=== PATIENT | female | born 2000 | race Caucasian/White ===

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

== ENCOUNTER 2021-01-10 17:37 | Emergency (ER) | payer MEDICAID ==
[2021-01-10] MEDS ORDERED: Haldol 5 MG IV ONE (17:47)
[2021-01-10] MEDS ORDERED: Nicoderm CQ 21 MG TOP ONE (17:49)
[2021-01-10] MEDS ORDERED: Haldol 5 MG ONE (17:49)
[2021-01-10 17:58] LABS: Absolute Neutrophil Ct (ANC) 7.39 (1.4-6.9); BASOPHIL % 0.2 % (0.0-0.4); Basophil (Absolute #) 0.02 (0-0.4); Eosinophil % 0.9 % (0.00-5.0); Eosinophil (Absolute #) 0.11 (0-0.5); Hematocrit 39.1 % (35-47); Hemoglobin 13.2 gm/dl (12.0-16.0); Lymphocyte (Absolute #) 3.17 (1.0-4.6); Lymphocytes % 26.9 % (24.0-44.0); Mean Cell Volume 82.8 fl (78-100); Mean Corpuscular Hgb Concent. 33.8 g/dl (32-36); Monocytes % 9.3 % (0.0-12.0); Neutrophil % 62.7 % (36.0-66.0); Platelet Count 366 K/mm3 (150-450); Red Blood Count 4.72 M/mm3 (4.1-5.4); Red Cell Distribution Width 13.2 % (11.5-14.0); White Blood Count 11.8 K/mm3 (4.0-10.5)
[2021-01-10 18:10] LABS: ACETAMINOPHEN < 10 ug/ml (10-30); ALBUMIN 4.5 g/dL (3.5-5.0); ALKALINE PHOSPHATASE 97 U/L (38-126); ANION GAP 15.1 MEQ/L (5-15); BLOOD UREA NITROGEN 15 mg/dL (7-17); CHLORIDE 106 mmol/L (98-107); Calcium 9.2 mg/dL (8.4-10.2); Carbon Dioxide 21 mmol/L (22-30); Creatinine 1 0.71 mg/dL (0.52-1.04); EST GLOMERULAR FILTRATION RATE > 60.0 ML/MIN; ETHYL ALCOHOL < 10 mg/dL (0-10); Glucose 103 mg/dL (74-106); Potassium 3.3 mmol/L (3.5-5.1); SALICYLATE < 1.0 mg/dL (2-20); SGOT/AST 23 U/L (14-36); SGPT/ALT 17 U/L (0-35); SODIUM 139 mmol/L (137-145); Total Protein 7.8 g/dL (6.3-8.2)
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
[2021-01-10 19:47] LABS: Appearance SLIGHTLY CLOUDY (CLEAR); Bilirubin NEGATIVE (NEGATIVE); Blood SMALL Ery/ul (0-5); Epithelial Cells RARE /HPF (FEW); Glucose NEGATIVE (NEGATIVE); Ketones SMALL (NEGATIVE); Leukocyte Esterase NEGATIVE (NEGATIVE); Mucus MODERATE /HPF (NEGATIVE); Nitrite NEGATIVE (NEGATIVE); Protein,Urine Dip 30 (Negative); Urobilinogen NEGATIVE mg/dL (0-1)
[2021-01-10 19:58] LABS: Barbiturate,Urine NEGATIVE (NEGATIVE); Benzodiazepine,Urine NEGATIVE (NEGATIVE); Cocaine,Urine NEGATIVE (NEGATIVE); Methadone,Urine NEGATIVE (NEGATIVE); Opiate,Urine NEGATIVE (NEGATIVE); PCP,Urine NEGATIVE (NEGATIVE); THC,Urine POSITIVE (NEGATIVE)
[2021-01-10 20:18] LABS: Amphetamine,Urine POSITIVE (NEGATIVE)
[2021-01-10 21:06] VITALS: O2SAT 100
[2021-01-10 21:40] LABS: COVID AG -BINAX NOW RAPID TEST NEGATIVE (NEGATIVE)
[2021-01-10 23:12] VITALS: BP 105/62; PULSE 70
== END 2021-01-10 23:50 ==
LOC: ED 17:37
DX: R45.851 Suicidal ideations (principal); X78.8XXA Intentional self-harm by other sharp object, initial encounter; Y93.9 Activity, unspecified; Y92.9 Unspecified place or not applicable; F19.10 Other psychoactive substance abuse, uncomplicated; F29 Unspecified psychosis not due to a substance or known physiological condition; F41.9 Anxiety disorder, unspecified; R41.0 Disorientation, unspecified; F98.8 Other specified behavioral and emotional disorders with onset usually occurring in childhood and adolescence; F31.9 Bipolar disorder, unspecified; F43.10 Post-traumatic stress disorder, unspecified; F94.1 Reactive attachment disorder of childhood; E78.5 Hyperlipidemia, unspecified
CPT/HCPCS: 36000; 36415; 80053; 80307; 81001; 81025; 85025; 87086; 96374; 99000; 99285; J1630; A9270-GY; G0480

== ENCOUNTER 2021-03-18 20:00 | Observation (INO) | payer MEDICAID ==
[2021-03-18] MEDS ORDERED: Ativan 2 MG/1 ML VIAL IV ONE (20:39)
[2021-03-18] MEDS ORDERED: Sodium Chloride 0.9% 1000 ML 1,000 ML IV STA ×2 (20:39→23:38)
[2021-03-18 20:53] LABS: Hematocrit 42.1 % (35-47); Hemoglobin 14.2 gm/dl (12.0-16.0); Mean Cell Volume 82.4 fl (78-100); Mean Corpuscular Hemoglobin 27.8 pg (26-32); Mean Corpuscular Hgb Concent. 33.7 g/dl (32-36); Mean Platelet Volume 9.3 fl (7.5-11.0); Platelet Count 391 K/mm3 (150-450); Red Blood Count 5.11 M/mm3 (4.1-5.4); Red Cell Distribution Width 13.3 % (11.5-14.0); White Blood Count 10.3 K/mm3 (4.0-10.5)
[2021-03-18 20:57] LABS: ACETAMINOPHEN < 10 ug/ml (10-30); ALBUMIN 4.5 g/dL (3.5-5.0); ALKALINE PHOSPHATASE 95 U/L (38-126); ANION GAP 14.8 MEQ/L (5-15); BLOOD UREA NITROGEN 10 mg/dL (7-17); CHLORIDE 101 mmol/L (98-107); Calcium 9.2 mg/dL (8.4-10.2); Carbon Dioxide 26 mmol/L (22-30); Creatinine 1 0.63 mg/dL (0.52-1.04); EST GLOMERULAR FILTRATION RATE > 60.0 ML/MIN; ETHYL ALCOHOL < 10 mg/dL (0-10); Glucose 97 mg/dL (74-106); Potassium 3.1 mmol/L (3.5-5.1); SALICYLATE < 1.0 mg/dL (2-20); SGOT/AST 34 U/L (14-36); SGPT/ALT 21 U/L (0-35); SODIUM 139 mmol/L (137-145); Total Protein 7.6 g/dL (6.3-8.2)
[2021-03-18] MEDS ORDERED: Sodium Chloride 0.9% 1000 ML 1,000 ML ONE ×2 (20:57→23:40)
[2021-03-18] MEDS ORDERED: Ativan 2 MG/1 ML VIAL ONE (20:57)
[2021-03-18 21:33] LABS: ATYPICAL LYMPHS 2 %; Eosinophil 1 % (0.00-3.0); Lymphocytes 37 % (24-44); Monocyte 3 % (0.0-12.0); Neutrophils 57 % (36.0-66.0); Platelet Estimate NORMAL (NORMAL); Total Cells Counted 100
[2021-03-18] MEDS ORDERED: K-LYTE 25 MEQ PO ONE (22:46)
[2021-03-18 22:51] LABS: Appearance SLIGHTLY CLOUDY (CLEAR); Bilirubin NEGATIVE (NEGATIVE); Blood NEGATIVE Ery/ul (0-5); Epithelial Cells RARE /HPF (FEW); Glucose NEGATIVE (NEGATIVE); Ketones TRACE (NEGATIVE); Leukocyte Esterase NEGATIVE (NEGATIVE); Mucus SLIGHT /HPF (NEGATIVE); Nitrite NEGATIVE (NEGATIVE); Protein,Urine Dip 30 (Negative); RBC 0-2 /HPF (0-2); Specific Gravity 1.028 (1.005-1.025); Urobilinogen 4 mg/dL (0-1)
--- NOTE | 2021-03-18 22:52 | ERPHSYRPT ---
- History of Present Illness Time Seen by Provider: 03/18/21 20:12 Source: patient, EMS Exam Limitations: clinical condition Patient Subjective Stated Complaint: pt states she is self medicating with adderall dt being out of klonipin she states she used adderall and "weed" today Triage Nursing Assessment: to er c/o drug use related pyschosis pt arrives p/w/d resp easy a@ox3. pt is cooperative at this time. pt states she is out of anxiety medication so has self medicated today with 60mg adderall Physician History: 21 years old female with history of anxiety, ADHD/ADD is brought in the ER by EMS with psychotic symptoms. Patient reports she was out of her Klonopin and tried to help medicate her with Adderall she had and took 60 mg earlier. Patient is agitated but denies any suicidal or homicidal ideations. Denies any hallucinations or delusions. Patient currently doing my interview is concerned about eating as she is hungry. History is limited secondary to her condition. Timing/Duration: day(s), constant, gradual onset, worse Severity of Symptoms-Max: moderate Severity of Symptoms-Current: moderate Associated Symptoms: agitated, anxiety, frustrated, impaired concentration, ingestion Allergies/Adverse Reactions: sulfamethoxazole [From Bactrim] Allergy (Verified 12/13/17 11:06) Hives trimethoprim [From Bactrim] Allergy (Verified 12/13/17 11:06) Hives Hx Tetanus, Diphtheria Vaccination/Date Given: Yes Hx Influenza Vaccination/Date Given: No Hx Pneumococcal Vaccination/Date Given: No Travel Risk - International Travel Have you traveled outside of the country in past 3 weeks: No - Coronavirus Screening Are you exhibiting any of the following symptoms?: No Close contact with a COVID-19 positive Pt in past 14-21 Days: No - Vaccine Status Have you recieved a Covid-19 vaccination: No - Past Medical History Pertinent Past Medical History: Yes Neurological History: No Pertinent History ENT History: No Pertinent History Cardiac History: No Pertinent History Respiratory History: No Pertinent History Endocrine Medical History: No Pertinent History Musculoskeletal History: Other GI Medical History: No Pertinent History History: No Pertinent History Psycho-Social History: Anxiety, Attention Deficit Disorder, Depression, Other Female Reproductive Disorders: No Pertinent History Other Medical History: adhd, BIPOLAR, PTSD, REACTIVE ATTACHMENT DISORDER. hyperlipidemia - Past Surgical History Past Surgical History: No Neuro Surgical History: No Pertinent History Cardiac: No Pertinent History Respiratory: No Pertinent History Gastrointestinal: No Pertinent History Genitourinary: No Pertinent History Musculoskeletal: No Pertinent History Female Surgical History: No Pertinent History - Social History Smoking Status: Current every day smoker How long have you smoked: 6 yrs Exposure to second hand smoke: No Drug Use: marijuana, other Patient Lives Alone: No - Female History Hx Now: No - Review of Systems Constitutional: No Symptoms Eyes: No Symptoms Ears, Nose, & Throat: No Symptoms Respiratory: No Symptoms Cardiac: No Symptoms Abdominal/Gastrointestinal: No Symptoms Genitourinary Symptoms: No Symptoms Musculoskeletal: No Symptoms Skin: No Symptoms Neurological: No Symptoms Psychological: Drug Abuse, Anxiety, Emotional Lability, Mood Changes, No Suicidal Ideations, No Homicidal Ideations Endocrine: No Symptoms Hematologic/Lymphatic: No Symptoms - Nursing Vital Signs Nursing Vital Signs: Initial Vital Signs Temperature 98.3 F 03/18/21 20:01 Pulse Rate 110 H 03/18/21 20:01 Blood Pressure 149/90 03/18/21 20:01 O2 Sat by Pulse Oximetry 100 03/18/21 20:01 Pain Scale Pain Intensity 0 - Physical Exam General Appearance: no apparent distress, alert, anxiety Eyes, Ears, Nose, Throat Exam: normal ENT inspection, TMs normal, pharynx normal Neck Exam: normal inspection, non-tender, supple, full range of motion, No meningismus Respiratory Exam: normal breath sounds, lungs clear Cardiovascular Exam: regular rate/rhythm, normal heart sounds Gastrointestinal/Abdominal Exam: soft, normal bowel sounds, No tenderness Extremities Exam: normal inspection, normal range of motion Neurological Exam: alert, 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, oriented x 3, agitated, No normal mood/affect Appearance: appropriate appearance, appropriate insight Behavior/Eye Contact/Speech: alert & cooperative, avoids eye contact, increased rate of speech Thoughts/Hallucinations: no apparent hallucination, flight of ideas Skin Exam: normal color SpO2 Interpretation: normal SpO2: 100 O2 Delivery: Room Air Ordered Tests: Active Orders 24 hr Category Date Time Status Heel Seat Flap Stapler STAT Care 03/18/21 20:40 Active EKG-ER Only STAT Care 03/18/21 20:39 Active IV Insertion STAT Care 03/18/21 20:39 Active ACETAMINOPHEN Stat Lab 03/18/21 20:49 Completed CBC W DIFF Stat Lab 03/18/21 20:49 Completed CMP Stat Lab 03/18/21 20:49 Completed ETHYL ALCOHOL Stat Lab 03/18/21 20:49 Completed HCG,QUALITATIVE URINE Stat Lab 03/18/21 21:32 Completed Manual Differential NC Stat Lab 03/18/21 20:49 Completed SALICYLATE Stat Lab 03/18/21 20:49 Completed UA W/RFX UR CULTURE Stat Lab 03/18/21 21:32 Completed Urine Triage Profile Stat Lab 03/18/21 21:32 Completed Medication Summary Generic Name Dose Route Start Last Admin Trade Name Freq PRN Reason Stop Dose Admin Potassium Chloride 20 meq in 100 mls @ 50 mls/hr 03/18/21 23:02 03/18/21 23:05 Potassium Chloride 20 Meq In Water 100ml IV 03/19/21 01:01 50 mls/hr STAT ONE Administration Discontinued Medications Generic Name Dose Route Start Last Admin Trade Name Freq PRN Reason Stop Dose Admin Sodium Chloride 1,000 mls @ 999 mls/hr 03/18/21 20:39 03/18/21 22:36 Sodium Chloride 0.9% 1000 Ml IV 03/18/21 21:39 Infused .Q1H1M STA Infusion Sodium Chloride Confirm 03/18/21 20:57 Sodium Chloride 0.9% 1000 Ml Administered 03/18/21 20:58 Dose 1,000 mls @ ud .ROUTE .STK-MED ONE Potassium Chloride Confirm 03/18/21 23:03 Potassium Chloride 20 Meq In Water 100ml Administered 03/18/21 23:04 Dose 100 mls @ ud IV .STK-MED ONE Sodium Chloride 1,000 mls @ 999 mls/hr 03/18/21 23:38 03/19/21 00:49 Sodium Chloride 0.9% 1000 Ml IV 03/19/21 00:38 Infused .Q1H1M STA Infusion Sodium Chloride Confirm 03/18/21 23:40 Sodium Chloride 0.9% 1000 Ml Administered 03/18/21 23:41 Dose 1,000 mls @ ud .ROUTE .STK-MED ONE Sodium Chloride Confirm 03/19/21 00:29 Sodium Chloride 0.9% 1000 Ml Administered 03/19/21 00:30 Dose 1,000 mls @ ud .ROUTE .STK-MED ONE Lorazepam 1 mg 03/18/21 20:39 03/18/21 21:01 Ativan 2 Mg/1 Ml Vial IV 03/18/21 20:40 1 mg STAT ONE Administration Lorazepam Confirm 03/18/21 20:57 Ativan 2 Mg/1 Ml Vial Administered 03/18/21 20:58 Dose 2 mg .ROUTE .STK-MED ONE Potassium Bicarbonate 50 meq 03/18/21 22:46 K-Lyte 25 Meq PO 03/18/21 22:47 STAT ONE Lab/Rad Data: Laboratory Result Diagrams 03/18/21 20:49 03/18/21 20:49 Laboratory Results 03/18/21 03/18/21 03/18/21 Range/Units 21:32 21:32 21:32 WBC (4.0-10.5) K/mm3 RBC (4.1-5.4) M/mm3 Hgb (12.0-16.0) gm/dl Hct (35-47) % MCV (78-100) fl MCH (26-32) pg MCHC (32-36) g/dl RDW (11.5-14.0) % Plt Count (150-450) K/mm3 MPV (7.5-11.0) fl Segmented Neutrophils (36.0-66.0) % Lymphocytes (Manual) (24-44) % Monocytes (Manual) (0.0-12.0) % Eosinophils (Manual) (0.00-3.0) % Atypical Lymphocytes % Platelet Estimate (NORMAL) RBC Morphology Sodium (137-145) mmol/L Potassium (3.5-5.1) mmol/L Chloride (98-107) mmol/L Carbon Dioxide (22-30) mmol/L Anion Gap (5-15) MEQ/L BUN (7-17) mg/dL Creatinine (0.52-1.04) mg/dL Estimated GFR ML/MIN Glucose (74-106) mg/dL Calcium (8.4-10.2) mg/dL Total Bilirubin (0.2-1.3) mg/dL AST (14-36) U/L ALT (0-35) U/L Alkaline Phosphatase (38-126) U/L Serum Total Protein (6.3-8.2) g/dL Albumin (3.5-5.0) g/dL Urine Color MANNY (YELLOW) Urine Appearance SLIGHTLY CLOUDY (CLEAR) Urine pH 6.0 (5-6) Ur Specific [place] 1.028 (1.005-1.025) Urine Protein 30 (Negative) Urine Ketones TRACE (NEGATIVE) Urine Blood NEGATIVE (0-5) Diony/ul Urine Nitrite NEGATIVE (NEGATIVE) Urine Bilirubin NEGATIVE (NEGATIVE) Urine Urobilinogen 4 (0-1) mg/dL Ur Leukocyte Esterase NEGATIVE (NEGATIVE) Urine WBC (Auto) 3-5 (0-5) /HPF Urine RBC (Auto) 0-2 (0-2) /HPF U Epithel Cells (Auto) RARE (FEW) /HPF Urine Bacteria (Auto) NONE (NEGATIVE) /HPF Urine Mucus (Auto) SLIGHT (NEGATIVE) /HPF Urine Culture Reflexed NO (NO) Urine Glucose NEGATIVE (NEGATIVE) mg/dL Urine HCG, Qual NEGATIVE (Negative) Salicylates (2-20) mg/dL Urine Opiates Level NEGATIVE (NEGATIVE) Ur Methadone NEGATIVE (NEGATIVE) Acetaminophen (10-30) ug/ml Urine Barbiturates NEGATIVE (NEGATIVE) Ur Phencyclidine (PCP) NEGATIVE (NEGATIVE) Urine Amphetamine POSITIVE (NEGATIVE) U Benzodiazepine Level NEGATIVE (NEGATIVE) Urine Cocaine NEGATIVE (NEGATIVE) Urine Marijuana (THC) POSITIVE (NEGATIVE) Ethyl Alcohol (0-10) mg/dL 03/18/21 03/18/21 Range/Units 20:49 20:49 WBC 10.3 (4.0-10.5) K/mm3 RBC 5.11 (4.1-5.4) M/mm3 Hgb 14.2 (12.0-16.0) gm/dl Hct 42.1 (35-47) % MCV 82.4 (78-100) fl MCH 27.8 (26-32) pg MCHC 33.7 (32-36) g/dl RDW 13.3 (11.5-14.0) % Plt Count 391 (150-450) K/mm3 MPV 9.3 (7.5-11.0) fl Segmented Neutrophils 57 (36.0-66.0) % Lymphocytes (Manual) 37 (24-44) % Monocytes (Manual) 3 (0.0-12.0) % Eosinophils (Manual) 1 (0.00-3.0) % Atypical Lymphocytes 2 % Platelet Estimate NORMAL (NORMAL) RBC Morphology NORMAL Sodium 139 (137-145) mmol/L Potassium 3.1 L (3.5-5.1) mmol/L Chloride 101 (98-107) mmol/L Carbon Dioxide 26 (22-30) mmol/L Anion Gap 14.8 (5-15) MEQ/L BUN 10 (7-17) mg/dL Creatinine 0.63 (0.52-1.04) mg/dL Estimated GFR > 60.0 ML/MIN Glucose 97 (74-106) mg/dL Calcium 9.2 (8.4-10.2) mg/dL Total Bilirubin 0.40 (0.2-1.3) mg/dL AST 34 (14-36) U/L ALT 21 (0-35) U/L Alkaline Phosphatase 95 (38-126) U/L Serum Total Protein 7.6 (6.3-8.2) g/dL Albumin 4.5 (3.5-5.0) g/dL Urine Color (YELLOW) Urine Appearance (CLEAR) Urine pH (5-6) Ur Specific [place] (1.005-1.025) Urine Protein (Negative) Urine Ketones (NEGATIVE) Urine Blood (0-5) Diony/ul Urine Nitrite (NEGATIVE) Urine Bilirubin (NEGATIVE) Urine Urobilinogen (0-1) mg/dL Ur Leukocyte Esterase (NEGATIVE) Urine WBC (Auto) (0-5) /HPF Urine RBC (Auto) (0-2) /HPF U Epithel Cells (Auto) (FEW) /HPF Urine Bacteria (Auto) (NEGATIVE) /HPF Urine Mucus (Auto) (NEGATIVE) /HPF Urine Culture Reflexed (NO) Urine Glucose (NEGATIVE) mg/dL Urine HCG, Qual (Negative) Salicylates < 1.0 L (2-20) mg/dL Urine Opiates Level (NEGATIVE) Ur Methadone (NEGATIVE) Acetaminophen < 10 L (10-30) ug/ml Urine Barbiturates (NEGATIVE) Ur Phencyclidine (PCP) (NEGATIVE) Urine Amphetamine (NEGATIVE) U Benzodiazepine Level (NEGATIVE) Urine Cocaine (NEGATIVE) Urine Marijuana (THC) (NEGATIVE) Ethyl Alcohol < 10 (0-10) mg/dL - Progress Progress: improved Progress Note: 03/19/21 00:57 21 years old is evaluated for agitation and not acting her baseline after ingestion of Adderall. Patient is finally calm down. EKG showed sinus rhythm with no acute ST elevations. Urine drug screen is positive for THC and amphetamine. Patient does admit smoking weed. She is given fluid bolus and her tachycardia is improved. She had mild hypokalemia and given replacement. Poison control is called, recommended 10-hour observation and supportive care. Discussed with Dr. Crook and patient is being admitted for observation and once medically cleared, behavioral health would be consulted. Discussed with : Cielo Will see patient in: hospital (observation) Counseled pt/family regarding: lab results, diagnosis - Departure Departure Disposition: Observation Clinical Impression: Substance abuse Psychosis Qualifiers: Psychosis type: unspecified psychosis type Qualified Code(s): F29 - Unspecified psychosis not due to a substance or known physiological condition Drug overdose Qualifiers: Encounter type: initial encounter Injury intent: undetermined intent Qualified Code(s): T50.904A - Poisoning by unspecified drugs, medicaments and biological substances, undetermined, initial encounter Condition: Stable Critical Care Time: No Referrals: NERI MAURO [Primary Care Provider] -
[2021-03-18 22:57] LABS: Barbiturate,Urine NEGATIVE (NEGATIVE); Benzodiazepine,Urine NEGATIVE (NEGATIVE); Cocaine,Urine NEGATIVE (NEGATIVE); Methadone,Urine NEGATIVE (NEGATIVE); Opiate,Urine NEGATIVE (NEGATIVE); PCP,Urine NEGATIVE (NEGATIVE); THC,Urine POSITIVE (NEGATIVE)
[2021-03-18] MEDS ORDERED: POTASSIUM CHLORIDE 20 mEq IN WATER 100ML 20 MEQ/100 ML BAG IV ONE (23:02)
[2021-03-18] MEDS ORDERED: POTASSIUM CHLORIDE 20 mEq IN WATER 100ML 100 ML IV ONE (23:03)
[2021-03-18 23:20] LABS: Amphetamine,Urine POSITIVE (NEGATIVE)
[2021-03-19] MEDS ORDERED: Sodium Chloride 0.9% 1000 ML 1,000 ML ONE (00:29)
[2021-03-19] MEDS ORDERED: TORAdol 30 mg Injection IV PRN (03:20)
[2021-03-19] MEDS ORDERED: Sodium Chloride 0.9% W/ 20 mEq KCl/LITER 1,000 ML IV SCH (03:20)
[2021-03-19] MEDS ORDERED: TYLENOL 325 MG PO PRN (03:20)
[2021-03-19] MEDS ORDERED: DUONEB 0.5-3 MG/3 ml Neb IH PRN (03:20)
[2021-03-19 04:20] VITALS: BP 110/72; PULSE 69; O2SAT 100
[2021-03-19] MEDS ORDERED: PROTONIX 40 MG IV IV SCH (10:00)
--- NOTE | 2021-03-21 12:59 | SSS ---
DISCHARGE DIAGNOSES: HOSPITAL COURSE: The patient is a 21 year-old white female who presented to the emergency room with complaints of having run out of her Klonopin so she decided to take amphetamine instead. She got quite anxious and nervous. According to the emergency room and EMS the patient was having some psychotic syndrome although they were not more specific on this. The patient was felt the need to stay in the hospital for observation and a psychologic evaluation by [facility]. By the morning however the patient decided that she would not stay and left AMA prior to the time that I could see her in the airset caster hours.
== END 2021-03-19 04:30 | disposition left against medical advice (07) ==
LOC: ED 20:00 → MED SURG 03-19 03:13
PROVIDERS: ADMIT Family Medicine; ATTEND Family Medicine
DX: F15.159 Other stimulant abuse with stimulant-induced psychotic disorder, unspecified (principal); T43.621A Poisoning by amphetamines, accidental (unintentional), initial encounter; F41.9 Anxiety disorder, unspecified
CPT/HCPCS: 36000; 36415; 80053; 80307; 81001; 84703; 85025; 93005; 93041; 96360; 96374; 96375; 96376; 99285; G0378; U0003; J2060; J3480; G0480

== ENCOUNTER 2021-04-23 13:47 | Emergency (ER) | payer MEDICAID ==
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
[2021-04-23 14:47] LABS: Absolute Neutrophil Ct (ANC) 5.96 (1.4-6.9); BASOPHIL % 0.2 % (0.0-0.4); Basophil (Absolute #) 0.02 (0-0.4); Eosinophil % 1.4 % (0.00-5.0); Eosinophil (Absolute #) 0.13 (0-0.5); Hemoglobin 14.1 gm/dl (12.0-16.0); Lymphocytes % 29.4 % (24.0-44.0); Mean Cell Volume 83.5 fl (78-100); Mean Corpuscular Hemoglobin 27.4 pg (26-32); Mean Corpuscular Hgb Concent. 32.8 g/dl (32-36); Mean Platelet Volume 9.4 fl (7.5-11.0); Monocytes % 6.3 % (0.0-12.0); Neutrophil % 62.7 % (36.0-66.0); Platelet Count 356 K/mm3 (150-450); Red Blood Count 5.15 M/mm3 (4.1-5.4); Red Cell Distribution Width 14.3 % (11.5-14.0); White Blood Count 9.5 K/mm3 (4.0-10.5)
[2021-04-23 14:55] LABS: ACETAMINOPHEN < 10 ug/ml (10-30); ALBUMIN 4.5 g/dL (3.5-5.0); ALKALINE PHOSPHATASE 79 U/L (38-126); ANION GAP 14.1 MEQ/L (5-15); BLOOD UREA NITROGEN 10 mg/dL (7-17); CHLORIDE 105 mmol/L (98-107); Calcium 9.5 mg/dL (8.4-10.2); Carbon Dioxide 25 mmol/L (22-30); Creatinine 1 0.54 mg/dL (0.52-1.04); EST GLOMERULAR FILTRATION RATE > 60.0 ML/MIN; ETHYL ALCOHOL < 10 mg/dL (0-10); Glucose 99 mg/dL (74-106); Potassium 3.7 mmol/L (3.5-5.1); SALICYLATE < 1.0 mg/dL (2-20); SGOT/AST 30 U/L (14-36); SGPT/ALT 20 U/L (0-35); SODIUM 140 mmol/L (137-145); Total Protein 7.5 g/dL (6.3-8.2)
[2021-04-23 16:11] LABS: Appearance CLOUDY (CLEAR); Bacteria FEW /HPF (NEGATIVE); Bilirubin NEGATIVE (NEGATIVE); Blood NEGATIVE Ery/ul (0-5); Epithelial Cells RARE /HPF (FEW); Glucose NEGATIVE (NEGATIVE); Ketones NEGATIVE (NEGATIVE); Leukocyte Esterase SMALL (NEGATIVE); Mucus SLIGHT /HPF (NEGATIVE); Nitrite NEGATIVE (NEGATIVE); Protein,Urine Dip NEGATIVE (Negative); Specific Gravity 1.023 (1.005-1.025); Urobilinogen 4 mg/dL (0-1)
[2021-04-23 16:15] LABS: Budding Yeast Rare /HPF (NEGATIVE)
[2021-04-23 16:22] LABS: Barbiturate,Urine NEGATIVE (NEGATIVE); Benzodiazepine,Urine NEGATIVE (NEGATIVE); Cocaine,Urine NEGATIVE (NEGATIVE); Methadone,Urine NEGATIVE (NEGATIVE); Opiate,Urine POSITIVE (NEGATIVE); PCP,Urine NEGATIVE (NEGATIVE); THC,Urine POSITIVE (NEGATIVE)
[2021-04-23 17:09] LABS: Amphetamine,Urine POSITIVE (NEGATIVE)
[2021-04-23 19:27] VITALS: O2SAT 100
[2021-04-23] MEDS ORDERED: Macrobid 100MG Capsule PO ONE (19:42)
[2021-04-23] MEDS ORDERED: Macrobid 100MG Capsule ONE (19:55)
[2021-04-23 20:00] LABS: COVID AG -BINAX NOW RAPID TEST NEGATIVE (NEGATIVE)
[2021-04-23 20:41] VITALS: BP 102/72; PULSE 71
== END 2021-04-23 21:00 | disposition short-term general hospital (02) ==
LOC: ED 13:47
DX: F19.10 Other psychoactive substance abuse, uncomplicated (principal); F29 Unspecified psychosis not due to a substance or known physiological condition; N39.0 Urinary tract infection, site not specified
CPT/HCPCS: 36415; 80053; 80307; 81001; 81025; 85025; 87086; 90791; 99000; 99285; Q3014; A9270-GY; G0480

== ENCOUNTER 2021-08-30 20:55 | Emergency (ER) | payer MEDICAID ==
[2021-08-30 21:44] LABS: Basophil (Absolute #) 0.02 (0-0.4); Eosinophil % 0.1 % (0.00-5.0); Eosinophil (Absolute #) 0.02 (0-0.5); Hematocrit 41.2 % (35-47); Hemoglobin 13.6 gm/dl (12.0-16.0); Lymphocyte (Absolute #) 2.13 (1.0-4.6); Lymphocytes % 14.7 % (24.0-44.0); Mean Cell Volume 82.6 fl (78-100); Mean Corpuscular Hemoglobin 27.3 pg (26-32); Mean Platelet Volume 8.2 fl (7.5-11.0); Monocyte (Absolute #) 0.72 (0.0-1.3); Neutrophil % 80.1 % (36.0-66.0); Platelet Count 325 K/mm3 (150-450); Red Blood Count 4.99 M/mm3 (4.1-5.4); Red Cell Distribution Width 14.4 % (11.5-14.0); White Blood Count 14.5 K/mm3 (4.0-10.5)
[2021-08-30 21:50] LABS: Appearance SLIGHTLY CLOUDY (CLEAR); Bilirubin NEGATIVE (NEGATIVE); Blood NEGATIVE Ery/ul (0-5); Epithelial Cells RARE /HPF (FEW); Glucose NEGATIVE (NEGATIVE); Ketones TRACE (NEGATIVE); Leukocyte Esterase TRACE (NEGATIVE); Mucus SLIGHT /HPF (NEGATIVE); Nitrite NEGATIVE (NEGATIVE); Protein,Urine Dip 30 (Negative); Specific Gravity 1.028 (1.005-1.025); Urobilinogen NEGATIVE mg/dL (0-1)
[2021-08-30 21:58] LABS: ACETAMINOPHEN < 10 ug/ml (10-30); ALKALINE PHOSPHATASE 98 U/L (38-126); ANION GAP 12.7 MEQ/L (5-15); BLOOD UREA NITROGEN 15 mg/dL (7-17); CHLORIDE 101 mmol/L (98-107); Calcium 9.6 mg/dL (8.4-10.2); Carbon Dioxide 29 mmol/L (22-30); Creatinine 1 0.73 mg/dL (0.52-1.04); EST GLOMERULAR FILTRATION RATE > 60.0 ML/MIN; ETHYL ALCOHOL < 10 mg/dL (0-10); Glucose 99 mg/dL (74-106); Potassium 3.8 mmol/L (3.5-5.1); SALICYLATE < 1.0 mg/dL (2-20); SGOT/AST 32 U/L (14-36); SGPT/ALT 27 U/L (0-35); SODIUM 139 mmol/L (137-145); Total Protein 8.2 g/dL (6.3-8.2)
[2021-08-30 22:03] LABS: Amphetamine,Urine NEGATIVE (NEGATIVE); Barbiturate,Urine NEGATIVE (NEGATIVE); Benzodiazepine,Urine NEGATIVE (NEGATIVE); Cocaine,Urine NEGATIVE (NEGATIVE); Methadone,Urine NEGATIVE (NEGATIVE); Opiate,Urine NEGATIVE (NEGATIVE); PCP,Urine NEGATIVE (NEGATIVE); THC,Urine POSITIVE (NEGATIVE)
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
[2021-08-30 23:44] LABS: COVID AG -BINAX NOW RAPID TEST NEGATIVE (NEGATIVE)
[2021-08-31 00:16] VITALS: PULSE 84
[2021-08-31 02:08] VITALS: BP 104/59
[2021-09-01 21:14] VITALS: O2SAT 97
== END 2021-08-31 03:02 ==
LOC: ED 20:55
DX: F23 Brief psychotic disorder (principal); F31.9 Bipolar disorder, unspecified; F41.9 Anxiety disorder, unspecified; F94.1 Reactive attachment disorder of childhood; E78.5 Hyperlipidemia, unspecified; F19.10 Other psychoactive substance abuse, uncomplicated; Z65.2 Problems related to release from prison; Z62.22 Institutional upbringing; Z59.89 Other problems related to housing and economic circumstances
CPT/HCPCS: 36415; 80053; 80307; 81001; 84703; 85025; 90791; 99000; 99285; Q3014; G0480

== ENCOUNTER 2024-11-07 22:36 | Emergency (ER) | payer MEDICAID, OTHER ==
[2024-11-07 23:10] VITALS: RESP 18; TEMP 97
[2024-11-07] MEDS ORDERED: TYLENOL 325 MG ONE (23:30)
--- NOTE | 2024-11-07 23:30 | ERPHSYRPT ---
- History of Present Illness Time Seen by Provider: 11/07/24 22:39 Source: patient, police Exam Limitations: no limitations Patient Subjective Stated Complaint: "I feel weak all over, dizzy, and not well." Triage Nursing Assessment: Pt presents to ER with police matron [facility] the [facility]. They state that she had low oxygen levels and fever at [facility]. Pt states that she had dizziness, generalized weakness, fatigue for the past couple of days. Believes she is dehydrated. Pt is alert and appears with mild lethargy. Pt respirations are easy and unlabored. Denies nausea/vomiting/diarrhea. Afebrile at triage. Complains of chronic back pain. States that she did smoke bath salts yesterday. Physician History: 24-year-old female is brought in the ER [facility] with [facility] for having a fever earlier at the [facility] and low oxygen saturation. Patient was recently admitted at the [facility] this evening, patient is afebrile on presentation in the ER and her oxygen saturation is 99% on room air with no tachypnea or tachycardia. Patient reports having aches and pains all over, feeling weak fatigued and tired. Denies any abdominal pain nausea vomiting and diarrhea. No difficulty breathing, chest pain palpitations or shortness of breath reported. Does report having itching/irritation in the throat and hurts to swallow. No known sick contact. Allergies/Adverse Reactions: sulfamethoxazole [From Bactrim] Allergy (Verified 11/07/24 23:10) Hives trimethoprim [From Bactrim] Allergy (Verified 11/07/24 23:10) Hives Home Medications: Olanzapine Odt 5 mg [Zyprexa Zydis 5 MG] 1 dose PO DAILY 11/07/24 [History] Hx Tetanus, Diphtheria Vaccination/Date Given: No Hx Influenza Vaccination/Date Given: No Hx Pneumococcal Vaccination/Date Given: No Immunizations Up to Date: No Travel Risk - International Travel Have you traveled outside of the country in past 3 weeks: No - Emerging Infectious Disease Are you exhibiting symptoms associated with any current EIDs: No - Review of Systems Constitutional: Fever, Fatigue Eyes: No Symptoms Ears, Nose, & Throat: Nose Congestion, Throat Pain, Throat Swelling Respiratory: No Symptoms Cardiac: No Symptoms Abdominal/Gastrointestinal: No Symptoms Genitourinary Symptoms: No Symptoms Musculoskeletal: Back Pain, Myalgias Skin: No Symptoms Neurological: No Symptoms Psychological: Drug Abuse Endocrine: No Symptoms Hematologic/Lymphatic: No Symptoms - Past Medical History Pertinent Past Medical History: Yes Neurological History: No Pertinent History ENT History: No Pertinent History Cardiac History: No Pertinent History, High Cholesterol Respiratory History: No Pertinent History Endocrine Medical History: No Pertinent History Musculoskeletal History: Other GI Medical History: No Pertinent History History: No Pertinent History Psycho-Social History: Anxiety, Attention Deficit Disorder, Depression, Other Female Reproductive Disorders: No Pertinent History Other Medical History: adhd, BIPOLAR, PTSD, REACTIVE ATTACHMENT DISORDER. hyperlipidemia - Past Surgical History Past Surgical History: No Neuro Surgical History: No Pertinent History Cardiac: No Pertinent History Respiratory: No Pertinent History Gastrointestinal: No Pertinent History Genitourinary: No Pertinent History Musculoskeletal: No Pertinent History Female Surgical History: No Pertinent History Significant Family History: no pertinent family hx - Female History Hx Last Menstrual Period: 10/23/24 Hx Now: No - Social History Smoking Status: Current every day smoker How long have you smoked: 6 yrs Exposure to second hand smoke: No Drug Use: marijuana, bath salts, other - Social Determinants of Health Will the patient participate in the screening: Yes Do you worry about a steady place to live?: Yes Do you have any problems with any of the following?: Other In the past 12 months,have you had to go without utilities?: Yes Transportation Issues: Yes Has anyone in your support network made you feel unsafe?: Yes Have you or anyone in your house had to go w/o enough food: Yes Comment: homeless, [facility] in from [facility]. States lives in abandoned homes or storage units. - Nursing Vital Signs Nursing Vital Signs: Initial Vital Signs Temperature 97 F 11/07/24 23:02 Pulse Rate 65 11/07/24 23:02 Respiratory Rate 18 11/07/24 23:02 Blood Pressure 106/69 11/07/24 23:02 O2 Sat by Pulse Oximetry 95 11/07/24 23:02 Pain Scale Pain Intensity 8 - Physical Exam General Appearance: no apparent distress, alert Eye Exam: PERRL/EOMI ENT Exam: normal ENT inspection Neck Exam: normal inspection, supple, full range of motion Respiratory Exam: normal breath sounds, lungs clear, no respiratory distress Cardiovascular/Chest Exam: normal heart sounds, regular rate/rhythm Gastrointestinal/Abdominal Exam: soft, non tender, no distention, no mass Extremity Exam: non-tender, normal range of motion Neurologic Exam: alert, oriented x 3, cooperative, 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 Skin Exam: normal color SpO2 Interpretation: normal SpO2: 95 O2 Delivery: Room Air Ordered Tests: Active Orders 24 hr Category Date Time Status ACO SDOH Referral ROUTINE Cons 11/07/24 23:12 Active UA W/RFX UR CULTURE Stat Lab 11/07/24 23:27 Ordered Medication Summary Discontinued Medications Generic Name Dose Route Start Last Admin Trade Name Sanjay PRN Reason Stop Dose Admin Acetaminophen 975 mg 11/07/24 23:28 11/07/24 23:34 Acetaminophen 325 Mg Tablet PO 11/07/24 23:29 975 mg STAT STA Administration Acetaminophen Confirm 11/07/24 23:30 Acetaminophen 325 Mg Tablet Administered 11/07/24 23:31 Dose 975 mg .ROUTE .A Little Easier Recovery ONE Lab/Rad Data: Laboratory Results 11/07/24 11/07/24 Range/Units 23:42 23:42 Influenza Type A Ag NEGATIVE (NEGATIVE) Influenza Type B Ag NEGATIVE (NEGATIVE) RSV (PCR) NEGATIVE (NEGATIVE) SARS-CoV-2 (PCR) NEGATIVE (NEGATIVE) Group A Strep Antibody NOT DETECTED (NEGATIVE) - Progress Progress: improved Progress Note: 11/08/24 01:08 24-year-old is evaluated in the ER for fever and hypoxia [facility] at the [facility]. Patient was booked in this evening. Patient does have history of substance abuse. Patient is not in any distress, oxygen saturation 99% on room air, no tachypnea or tachycardia. She is afebrile and here throughout stay in the ER. Vitals remained stable. She is complaining of soreness in the throat and I have obtained strep flu COVID and RSV which are negative. Lungs clear to auscultation, do not think needs imaging or any workup. I believe patient has viral etiology URI symptoms with pharyngitis I also believe patient's tiredness is secondary to substance use, do not think patient needs any other workup and is stable for discharge back to [facility]. Discussed signs symptoms of worsening needing return to ER which patient/PD seem understanding. Stable for discharge. Counseled pt/family regarding: lab results, diagnosis, need for follow-up, smoking cessation Medical Desision Making - Independent Historian Additional History obtained from: [employer] ([employer]) - Diagnostic Testing Diagnostic test were ordered, analyzed, and reviewed by me: Yes - Departure Departure Disposition: Home Clinical Impression: Viral pharyngitis Condition: Stable Critical Care Time: No Referrals: NERI MAURO [NON-STAFF PHY W/O PRIVILEGES] - Follow up with PCP 1 day Instructions: Fever, Adult (DC) Additional Instructions: Take Tylenol/ibuprofen as needed. Increase hydration. Follow-up with primary care for reevaluation. Return to ER for worsening of symptoms like persistent high-grade fever, difficulty breathing, cough etc.
[2024-11-07] MEDS: TYLENOL 325 MG PO STA (23:34)
[2024-11-08 00:20] LABS: INFLUENZA A NEGATIVE (NEGATIVE); INFLUENZA B NEGATIVE (NEGATIVE); RESPIRATORY SYNCTIAL VIRUS NEGATIVE (NEGATIVE); SARS-CoV-2 Xpert Express NEGATIVE (NEGATIVE)
[2024-11-08 01:12] VITALS: O2SAT 95
[2024-11-08 01:14] VITALS: BP 98/58; PULSE 96
== END 2024-11-08 01:23 | disposition home or self-care (01) ==
LOC: ED 22:36 → EEVIPCON 22:36 → ED 11-08 01:23
DX: J02.9 Acute pharyngitis, unspecified (principal); R50.9 Fever, unspecified; M79.10 Myalgia, unspecified site; R53.83 Other fatigue; E78.5 Hyperlipidemia, unspecified; Z79.899 Other long term (current) drug therapy; Z72.0 Tobacco use; Z59.02 Unsheltered homelessness; Z59.12 Inadequate housing utilities; Z59.41 Food insecurity; Z59.82 Transportation insecurity; Z63.8 Other specified problems related to primary support group
CPT/HCPCS: 0241U; 87651; 99283; A9270-GY